=== PATIENT | male | born 1985 | race African-American/Black ===

== ENCOUNTER 2020-07-04 18:18 | Inpatient (IN) | payer MEDICAID ==
[~2020-07-04] VITALS: Ht 167.6 cm; Wt 71.7 kg
[2020-07-04] MEDS ORDERED: SODIUM CHLORIDE 0.9% 1,000 ML IV ONE (18:52)
[2020-07-04] MEDS ORDERED: MORPHINE SULFATE 4 MG/ML CPJ (NOT FOR IM USE) IV STA (18:52)
[2020-07-04] MEDS ORDERED: ONDANSETRON HCL 4MG/2ML INJ IV STA (18:52)
[2020-07-04 19:15] LABS: CLARITY URINE CLEAR (CLEAR); COLOR URINE YELLOW (YELLOW); KETONES URINE NEGATIVE (NEGATIVE); LEUKOCYTE ESTERASE URINE NEGATIVE (NEGATIVE); NITRITE URINE NEGATIVE (NEGATIVE); OCCULT BLOOD URINE NEGATIVE (NEGATIVE); PROTEIN URINE NEGATIVE (NEGATIVE); SPECIFIC GRAVITY URINE 1.013 (1.005-1.030); UROBILINOGEN URINE 0.2 E.U./dL (0.2-1.0)
[2020-07-04 19:26] LABS: *AMPHETAMINES SCREEN URINE PRESUMTIVE POSITIVE (NEGATIVE); *BARBITURATES SCREEN URINE NEGATIVE (NEGATIVE); *BENZODIAZEPINES SCREEN URINE NEGATIVE (NEGATIVE); *COCAINE SCREEN URINE NEGATIVE (NEGATIVE); METHADONE URINE SCREEN NEGATIVE (NEGATIVE); OPIATES URINE SCREEN NEGATIVE (NEGATIVE)
[2020-07-04 19:27] LABS: CANNABINOID URINE SCREEN PRESUMTIVE POSITIVE (NEGATIVE); PHENCYCLIDINE URINE SCREEN NEGATIVE (NEGATIVE)
[2020-07-04 19:28] LABS: HEMATOCRIT. 33.4 % (42.0-52.0); HEMOGLOBIN. 10.6 g/dL (14.0-18.0); MEAN CORPUSCULAR HEMOGLOBIN 27.1 pg (28.0-32.0); MEAN PLATELET VOLUME 8.9 fl (7.4-10.4); PLATELET 619 x1000/uL (130-400); RED BLOOD CELL COUNT 3.93 mill/uL (4.7-6.1); RED CELL DISTRIBUTION WIDTH 24.6 % (11.6-14.6)
[2020-07-04 19:38] LABS: INR 1.1; PROTHROMBIN TIME 11.1 sec (9.6-11.0)
[2020-07-04 19:40] LABS: CHLORIDE 105 mEq/L (98-107)
[2020-07-04 19:44] LABS: ETHANOL BLOOD < 10 mg/dL
[2020-07-04] MEDS ORDERED: MORPHINE SULFATE 4 MG/ML CPJ (NOT FOR IM USE) IV ONE (21:30)
[2020-07-04] MEDS ORDERED: IOHEXOL-350 100 ML BOTTLE ONE (22:24)
[2020-07-04 22:31] LABS: PLATELET ESTIMATE MARKEDLY INCREASED
[2020-07-05] VITALS (7 sets, daily range): BP systolic 103–128; BP diastolic 56–79
[2020-07-05] MEDS: MORPHINE SULFATE 2 MG/ML CPJ (NOT FOR IM USE) IV PRN ×2 (07:40→13:59)
[2020-07-05] MEDS ORDERED: ONDANSETRON HCL 4MG/2ML INJ IV PRN (07:45)
[2020-07-05] MEDS ORDERED: POTASSIUM CHLORIDE 20MEQ TABLET SR PO SCH (09:45)
[2020-07-05] MEDS: FAMOTIDINE 20MG TABLET PO SCH ×2 (10:36→21:07)
[2020-07-05] MEDS: HYDROCODONE/ACETAMINOPHEN 10/325MG TABLET PO PRN ×3 (10:37→23:17)
[2020-07-05] MEDS ORDERED: IMAT400T2 MT (11:22)
[2020-07-05] MEDS: MORPHINE SULFATE 15MG TABLET SR PO SCH (21:09)
[2020-07-06] VITALS (13 sets, daily range): BP systolic 97–118; BP diastolic 55–76
[2020-07-06] MEDS: HYDROCODONE/ACETAMINOPHEN 10/325MG TABLET PO PRN ×3 (05:12→23:06)
[2020-07-06 06:41] LABS: CHLORIDE 102 mEq/L (98-107)
[2020-07-06 06:45] LABS: HEMATOCRIT. 31.9 % (42.0-52.0); HEMOGLOBIN. 10.3 g/dL (14.0-18.0); MEAN CORPUSCULAR HEMOGLOBIN 27.6 pg (28.0-32.0); MEAN CORPUSCULAR VOLUME 85.3 fL (80.0-94.0); MEAN PLATELET VOLUME 8.6 fl (7.4-10.4); PLATELET 519 x1000/uL (130-400); RED BLOOD CELL COUNT 3.74 mill/uL (4.7-6.1); RED CELL DISTRIBUTION WIDTH 24.3 % (11.6-14.6)
[2020-07-06] MEDS ORDERED: HYDROXYUREA 500MG CAPSULE PO SCH (08:00)
[2020-07-06] MEDS: MORPHINE SULFATE 15MG TABLET SR PO SCH ×2 (08:34→20:38)
[2020-07-06] MEDS: ALLOPURINOL 300 MG TABLET PO SCH (08:34)
[2020-07-06] MEDS: FAMOTIDINE 20MG TABLET PO SCH ×2 (08:35→20:38)
[2020-07-06] MEDS: HYDROXYUREA 500MG CAPSULE PO SCH (08:39)
[2020-07-06] MEDS ORDERED: MSCON15 PO (13:57)
[2020-07-06] MEDS ORDERED: HYDR-4009 PO (13:57)
[2020-07-06 14:12] LABS: PLATELET ESTIMATE INCREASED
[2020-07-07] VITALS (11 sets, daily range): BP systolic 99–117; BP diastolic 49–69
[2020-07-07] MEDS: HYDROCODONE/ACETAMINOPHEN 10/325MG TABLET PO PRN ×3 (06:08→23:58)
[2020-07-07] MEDS: HYDROXYUREA 500MG CAPSULE PO SCH (08:31)
[2020-07-07] MEDS: FAMOTIDINE 20MG TABLET PO SCH ×2 (08:33→20:28)
[2020-07-07] MEDS: MORPHINE SULFATE 15MG TABLET SR PO SCH ×2 (08:36→20:29)
[2020-07-07] MEDS: ALLOPURINOL 300 MG TABLET PO SCH (08:37)
[2020-07-07] MEDS ORDERED: LACTULOSE 20G/30ML UDC PO NR (12:00)
[2020-07-07] MEDS ORDERED: GADOBENATE DIMEGLUMINE 529 MG/ML 10ML IV ONE (16:10)
[2020-07-07] MEDS ORDERED: DOCUSATE SODIUM 100MG CAPSULE PO SCH (17:00)
[2020-07-07] MEDS ORDERED: POLYETHYLENE GLYCOL 3350 (17GM) 1 DOSE PACK PO SCH (21:00)
[2020-07-08] VITALS: BP 108/49
[2020-07-08 04:00] VITALS: BP 119/54
[2020-07-08] MEDS: HYDROCODONE/ACETAMINOPHEN 10/325MG TABLET PO PRN (06:01)
[2020-07-08 06:30] LABS: HEMATOCRIT. 33.1 % (42.0-52.0); HEMOGLOBIN. 10.1 g/dL (14.0-18.0); MEAN CORPUSCULAR HEMOGLOBIN 26.2 pg (28.0-32.0); MEAN PLATELET VOLUME 9.5 fl (7.4-10.4); PLATELET 438 x1000/uL (130-400); RED BLOOD CELL COUNT 3.85 mill/uL (4.7-6.1); RED CELL DISTRIBUTION WIDTH 23.7 % (11.6-14.6)
[2020-07-08 08:00] VITALS: BP_SYST 120; BP_DIAS 58; BP_DIAS 60
[2020-07-08 08:55] VITALS: BP 120/58
[2020-07-08] MEDS: MORPHINE SULFATE 15MG TABLET SR PO SCH (08:55)
[2020-07-08 13:56] LABS: PLATELET ESTIMATE INCREASED
== END 2020-07-08 08:56 | disposition left against medical advice (07) | DRG 243 ==
LOC: ER 18:18 → EDBD 18:18 → MICUSO 23:39 → EDBEDREQ 23:42 → EDBEDREQTM 23:42 → 5EST 07-05 11:27
PROVIDERS: ADMIT Internal Medicine; ATTEND Internal Medicine
DX: K21.9 Gastro-esophageal reflux disease without esophagitis (principal); E87.6 Hypokalemia; C92.10 Chronic myeloid leukemia, BCR/ABL-positive, not having achieved remission; D64.9 Anemia, unspecified; F12.90 Cannabis use, unspecified, uncomplicated; F15.90 Other stimulant use, unspecified, uncomplicated; F17.200 Nicotine dependence, unspecified, uncomplicated; G83.14 Monoplegia of lower limb affecting left nondominant side; M54.9 Dorsalgia, unspecified; R26.89 Other abnormalities of gait and mobility; Z91.19 Patient's noncompliance with other medical treatment and regimen; F17.210 Nicotine dependence, cigarettes, uncomplicated
CPT/HCPCS: 36415; 70551; 71045; 72141; 72146; 72148; 74177; 80048; 80053; 80305; 80320; 81003; 83605; 84145; 84484; 84550; 85025; 93005; 96374; 97162; 97166; 99291; A9577; J2270; J2405; J7030; Q9967; G0480